=== PATIENT | male | born 1965 | race Caucasian/White ===

== ENCOUNTER → 2022-01-20 | Outpatient (CLI) | payer BC ==
--- NOTE | 2022-01-20 09:07 | MR ---
EXAMINATION TYPE: MR brain and iac wo/w con DATE OF EXAM: 01/20/2022 COMPARISON: NONE HISTORY: [place] hearing loss TECHNIQUE: Multiplanar, multisequence images of the brain and brainstem along with internal auditory canals are all performed without and with IV contrast, utilizing 9 mL intravenous Gadavist . FINDINGS: Diffusion weighted images demonstrate no evidence of a recent infarct or other diffusion ab normality. Mild ventricular and sulcal prominence. A few small scattered foci of T2 hyperintensity ar e seen throughout the white matter bilaterally. Lesions are nonspecific in appearance and distributio n. Several scattered tiny old lacunar infarcts versus prominent Virchow-Monico spaces for reference ri ght basal ganglia postcontrast axial image 17. Similar lesion seen in left head of caudate nucleus. Midline structures demonstrate normal morphology. The craniocervical junction appears within normal limits. Post contrast images demonstrate no abnormal enhancement. Dominant right vertebral artery in cidentally noted. The dural venous sinuses appear patent. The visualized sinuses are clear and the gl obes are intact. Nasal septum is deviated to right of midline. The vestibulocochlear complexes are symmetric and felt within normal limits. There is no suspicious e nhancing cerebellopontine angle mass identified bilaterally. No suspicious fluid signal seen in the m astoid air cells bilaterally. IMPRESSION: Source of patient's bilateral hearing loss not identified. There is mild diffuse age-rela daisha cerebral atrophy and mild chronic small vessel ischemic change. Suspect several small scattered o ld lacunar infarcts.
== END | disposition home or self-care (01) ==
LOC: RADMRIMAIN 07:05
PROVIDERS: ATTEND Nurse Practitioner Family
DX: I67.82 Cerebral ischemia (principal); G31.9 Degenerative disease of nervous system, unspecified
CPT/HCPCS: 70553; A9585

== ENCOUNTER → 2023-08-24 | Outpatient (CLI) | payer BC ==
--- NOTE | 2023-08-26 08:12 | XR ---
EXAMINATION TYPE: XR ankle complete RT DATE OF EXAM: 08/24/2023 COMPARISON: NONE HISTORY: Pain TECHNIQUE: Frontal, lateral and oblique images of the right ankle are obtained. COMPARISON: None. FINDINGS: There is no acute fracture/dislocation evident. The joint spaces appear within normal wal[place] its. The overlying soft tissue appears unremarkable. IMPRESSION: There is no acute fracture or dislocation seen.
--- NOTE | 2023-08-26 08:12 | XR ---
EXAMINATION TYPE: XR lumbar spine 2 or 3V DATE OF EXAM: 08/24/2023 CLINICAL HISTORY: pain TECHNIQUE: Three views of the lumbar spine are submitted. COMPARISON: None. FINDINGS: There are 5 lumbar type vertebral bodies identified. The lumbar spine shows satisfactory alignment w ithout evidence of acute fracture or dislocation. Vertebral body heights are within normal limits. Moderate degenerative disc space narrowing at L5-S1. Ventral and dorsal spondylosis. The overlying s oft tissue appears unremarkable. IMPRESSION: No acute fracture or dislocation is seen in the lumbar spine. ICD 10 NO FRACTURE, INITIAL EVALUATION
== END | disposition home or self-care (01) ==
LOC: RADXRMAIN 15:06
PROVIDERS: ATTEND Internal Medicine
DX: M54.50 Low back pain, unspecified (principal); M25.571 Pain in right ankle and joints of right foot
CPT/HCPCS: 72100